=== PATIENT | male | born 1985 | race Two or more races ===

== ENCOUNTER 2023-10-12 19:48 | Emergency (ER) | payer MEDICAID, OTHER ==
[~2023-10-12] VITALS: Ht 170.2 cm; Wt 86.3 kg
[2023-10-12] MEDS: KETAMINE 50mg/ML 1ml syringe IV ONE (20:15)
[2023-10-12 23:00] VITALS: PULSE 110; RESP 18; O2SAT 96
[2023-10-12] MEDS: KETAMINE 50mg/ML 10ml Vial (500mg/10ml) IV ONE (23:21)
[2023-10-13] VITALS: BP 105/87; PULSE 111; RESP 18; TEMP 98.6; O2SAT 98
[2023-10-13] MEDS ORDERED: ACE3T PO (00:23)
[2023-10-13] MEDS ORDERED: IBUP-1455 PO (00:23)
[2023-10-13] MEDS: HYDROcodone-ACET 10/325MG TAB PO ONE (00:57)
== END 2023-10-13 00:40 | disposition home or self-care (01) ==
LOC: ER 19:48
DX: S43.005A Unspecified dislocation of left shoulder joint, initial encounter (principal); V86.56XA Driver of dirt bike or motor/cross bike injured in nontraffic accident, initial encounter; Y93.89 Activity, other specified; Y92.89 Other specified places as the place of occurrence of the external cause; Y99.8 Other external cause status
CPT/HCPCS: 23650; 73020; 73030; 99152